=== PATIENT | female | born 1935 | race Hispanic/Latino ===

== ENCOUNTER 2017-12-17 16:00 | Inpatient (IN) | payer OTHER ==
[~2017-12-17] VITALS: Ht 144.8 cm; Wt 64.2 kg
[~2017-12-17 16:00] MED LIST: CITA-107 PO; LISI40TA4 PO; METF500T6 PO; METO50TA18 PO; PRAV20TA4 PO
[2017-12-17 16:52] LABS: EOSINOPHILS % (AUTO) 1.9 % (0.0-8.0); HEMATOCRIT 36.8 % (36-48); LYMPHOCYTES % (AUTO) 21.2 % (21.0-51.0); MEAN CORPUSCULAR HEMOGLOBIN 32.5 pg (27.0-33.0); MEAN CORPUSCULAR HGB CONC 33.8 g/dL (32.0-36.0); MEAN CORPUSCULAR VOLUME 96.1 fL (79-99); MONOCYTES % (AUTO) 7.3 % (3.0-13.0); NEUTROPHILS % (AUTO) 68.6 % (40.0-77.0); PLATELET COUNT (AUTO) 205 K/uL (130-400); RED BLOOD CELL COUNT(AUTO) 3.83 MIL/uL (4.00-5.50); RED CELL DISTRIBUTION WIDTH 14.6 % (11.0-15.5); WHITE BLOOD COUNT (AUTO) 8.2 K/uL (4.8-10.8)
[2017-12-17 16:54] LABS: APPEARANCE,URINE CLOUDY (CLEAR); BILIRUBIN,URINE NEGATIVE (NEGATIVE); COLOR,URINE YELLOW (YELLOW); GLUCOSE, URINE (UA) NEGATIVE (NEGATIVE); KETONES,URINE NEGATIVE (NEGATIVE); LEUKOCYTE ESTERASE ,URINE LARGE (NEGATIVE); NITRATE,URINE NEGATIVE (NEGATIVE); OCCULT BLOOD,URINE TRACE-INTACT (NEGATIVE); PH,URINE 6.5 (5.0-8.0); PROTEIN,URINE 30 (NEGATIVE); UROBILINOGEN,URINE 0.2 mg/dL (0.2-1.0)
[2017-12-17 16:55] VITALS: BP 168/88
[2017-12-17 17:02] LABS: POTASSIUM 4.2 mmol/L (3.5-5.1)
[2017-12-17] MEDS ORDERED: ASPI-1181 PO (17:02)
[2017-12-17 17:09] LABS: INR 0.96 (0.85-1.15); PARTIAL THROMBOPLASTIN TIME 25.7 SEC (26.3-35.5); PROTHROMBIN TIME 10.1 SEC (9.6-11.6)
[2017-12-17 17:48] LABS: BACTERIA,URINE Rare /HPF (None Seen); SQUAMOUS EPITHELIAL CELL,UR Rare /LPF (0-2); TRANSITIONAL EPI CELLS,URINE Rare /LPF (None Seen); WBC,URINE 51-100 /HPF (0-1)
[2017-12-20] VITALS (19 sets, daily range): BP systolic 118–192; BP diastolic 45–97
[2017-12-20] MEDS ORDERED: GENTAMICIN SULFATE 240 MG in SODIUM CHLORIDE 0.9% 100 ML IV SCH (09:30)
[2017-12-20] MEDS: CEFAZOLIN SODIUM 1 GM VIAL IVP SCH ×3 (10:00→21:05)
[2017-12-20] MEDS ORDERED: SODIUM CHLORIDE 0.9% 1000ML 1,000 ML IV ONE (10:32)
[2017-12-20] MEDS ORDERED: ACETAMINOPHEN EXTRA STRENGTH 500 MG TABLET ONE (10:58)
[2017-12-20] MEDS ORDERED: CELECOXIB 200 MG CAP ONE (10:58)
[2017-12-20] MEDS ORDERED: KETOROLAC TROMETHAMINE 15MG/ML ONE (10:58)
[2017-12-20] MEDS ORDERED: OXYCODONE HCL 10 MG TAB.SR.12H PO ONE (10:59)
[2017-12-20] MEDS ORDERED: CEFAZOLIN SODIUM 1 GM VIAL ONE (11:29)
[2017-12-20] MEDS ORDERED: TRANEXAMIC ACID 1000MG/10ML IV ONE ×2 (11:29→14:39)
[2017-12-20] MEDS ORDERED: ROCURONIUM BROMIDE 10MG/1ML 5ML VL ONE ×2 (11:35→15:04)
[2017-12-20] MEDS ORDERED: PROPOFOL 10 MG/ML 20ML VIAL IV ONE (11:35)
[2017-12-20] MEDS ORDERED: LIDOCAINE PF 2% 5ML ABBOJECT ONE (11:35)
[2017-12-20] MEDS ORDERED: ROPIVACAINE 0.5% 5MG/ML 30ML IJ ONE (11:43)
[2017-12-20] MEDS ORDERED: NEOSTIGMINE METHYLSULFATE 1MG/ML IV ONE (15:04)
[2017-12-20] MEDS ORDERED: GLYCOPYRROLATE 0.2 MG/ML 5 ML VIAL ONE (15:04)
[2017-12-20] MEDS ORDERED: DIPHENHYDRAMINE HCL 25 MG CAPSULE PO PRN (15:15)
[2017-12-20] MEDS ORDERED: POTASSIUM CHLORIDE 10% ELIXIR 20 MEQ/15 ML UDCUP PO PRN (15:15)
[2017-12-20] MEDS ORDERED: HYDROCODONE/ACETAMINOPHEN 5/325 MG TAB PO PRN ×2 (15:15)
[2017-12-20] MEDS ORDERED: PROMETHAZINE HCL 25 MG/ML 1ML AMPULE IM PRN (15:15)
[2017-12-20] MEDS ORDERED: DiphenhydrAMINE HCL 50 MG/ML VIAL IVP PRN (15:15)
[2017-12-20] MEDS ORDERED: TEMAZEPAM 15 MG CAPSULE PO PRN (15:15)
[2017-12-20] MEDS ORDERED: FE FUMARATE/FA/MV, MIN COMB#15 1 TAB PO PRN (15:15)
[2017-12-20] MEDS ORDERED: LIDOCAINE HCL-MPF 1% 2ML VIAL IVP PRN (15:15)
[2017-12-20] MEDS ORDERED: POTASSIUM CHLORIDE 20 MEQ ERTAB PO PRN (15:15)
[2017-12-20] MEDS ORDERED: KETOROLAC TROMETHAMINE 15MG/ML IV PRN (15:15)
[2017-12-20] MEDS ORDERED: POTASSIUM CHLORIDE 20MEQ/100ML 100 ML IV PRN (15:15)
[2017-12-20] MEDS ORDERED: TRAMADOL HCL 50 MG TABLET PO PRN (15:15)
[2017-12-20] MEDS ORDERED: CALCIUM CARBONATE 500 MG TABLET PO PRN (15:15)
[2017-12-20] MEDS ORDERED: MEPERIDINE-PF 25 MG/ML SYG ONE (15:50)
[2017-12-20] MEDS ORDERED: HYDRALAZINE HCL 20 MG/ML VIAL ONE (15:51)
[2017-12-20] MEDS: INSULIN HUMULIN R 100 UNIT/ML 3ML SQ SCH ×2 (16:30→21:00)
[2017-12-20] MEDS: SODIUM CHLORIDE 0.9% 1000ML 1,000 ML IV SCH (16:52)
[2017-12-20] MEDS: METFORMIN HCL 500 MG TABLET PO SCH (19:28)
[2017-12-20] MEDS ORDERED: CEFAZOLIN 2GM / 50 ML 50 ML IV SCH (20:15)
[2017-12-20] MEDS ORDERED: ASPIRIN 81 MG EC TAB PO SCH (21:00)
[2017-12-20] MEDS: METOPROLOL TARTRATE 50 MG TAB PO SCH (21:00)
[2017-12-20] MEDS ORDERED: CITALOPRAM 20 MG TABLET PO SCH (21:00)
[2017-12-20] MEDS: CELECOXIB 200 MG CAP PO SCH (21:04)
[2017-12-21] MEDS: SODIUM CHLORIDE 0.9% 1000ML 1,000 ML IV SCH ×2 (01:26→11:09)
[2017-12-21] MEDS: CEFAZOLIN SODIUM 1 GM VIAL IVP SCH (03:39)
[2017-12-21 04:45] VITALS: BP 162/77
[2017-12-21 05:37] LABS: HEMATOCRIT 31.8 % (36-48); MEAN CORPUSCULAR HGB CONC 34.2 g/dL (32.0-36.0); MEAN CORPUSCULAR VOLUME 96.5 fL (79-99); PLATELET COUNT (AUTO) 176 K/uL (130-400); RED BLOOD CELL COUNT(AUTO) 3.29 MIL/uL (4.00-5.50); RED CELL DISTRIBUTION WIDTH 14.5 % (11.0-15.5); WHITE BLOOD COUNT (AUTO) 9.3 K/uL (4.8-10.8)
[2017-12-21] MEDS: INSULIN HUMULIN R 100 UNIT/ML 3ML SQ SCH ×3 (05:42→16:30)
[2017-12-21 05:44] LABS: CREATININE 0.9 mg/dL (0.5-1.5); POTASSIUM 4.1 mmol/L (3.5-5.1)
[2017-12-21 08:29] VITALS: BP 162/78
[2017-12-21] MEDS ORDERED: FAMOTIDINE 20MG TAB 20 MG TAB PO SCH (09:00)
[2017-12-21] MEDS ORDERED: ENOXAPARIN SODIUM 40 MG/0.4 ML SYRINGE SQ SCH (09:00)
[2017-12-21] MEDS ORDERED: ATORVASTATIN CALCIUM 10 MG TABLET PO SCH (09:00)
[2017-12-21] MEDS ORDERED: LISINOPRIL 40 MG TABLET PO SCH (09:00)
[2017-12-21] MEDS ORDERED: POLYETHYLENE GLYCOL 3350 17 GM POWD.PACK PO SCH (09:00)
[2017-12-21] MEDS: CELECOXIB 200 MG CAP PO SCH (09:03)
[2017-12-21] MEDS: METFORMIN HCL 500 MG TABLET PO SCH ×2 (09:04→16:53)
[2017-12-21] MEDS: METOPROLOL TARTRATE 50 MG TAB PO SCH (09:04)
[2017-12-21 11:29] VITALS: BP 140/89
[2017-12-21] MEDS ORDERED: PSYLLIUM SEED 1 EACH PACKET PO SCH (12:00)
[2017-12-21 16:30] VITALS: BP 177/80
[2017-12-21] MEDS ORDERED: HYDR-2132 PO (19:01)
[2017-12-22] MEDS ORDERED: BISACODYL 5 MG TABLET.DR PO PRN (15:15)
[2017-12-23] MEDS ORDERED: BISACODYL 10 MG SUPP.RECT RC PRN (15:15)
== END 2017-12-21 21:21 | disposition home health service (06) | DRG 483 ==
LOC: EDSTATUS 16:00 → DAHIP 12-20 09:11 → 4AH 12-20 16:39
PROVIDERS: ADMIT Orthopaedic Surgery; ATTEND Orthopaedic Surgery
PROC: 0RRJ0JZ Replacement of Right Shoulder Joint with Synthetic Substitute, Open Approach (ICD-10-PCS; principal; 2017-12-20 12:39)
DX: M19.011 Primary osteoarthritis, right shoulder (principal); E11.9 Type 2 diabetes mellitus without complications; F32.9 Major depressive disorder, single episode, unspecified; F41.9 Anxiety disorder, unspecified; I10 Essential (primary) hypertension; E78.5 Hyperlipidemia, unspecified; G89.29 Other chronic pain
CPT/HCPCS: 36415; 76000; 80048; 81001; 82948; 85025; 85027; 85610; 85730; 88309; 88311; 96374; A4218; A4565; C1713; C1776; J0360; J0690; J1580; J1650; J1885; J2001; J2175; J2704; J2710; J2795; J3490; J7030

== ENCOUNTER → 2020-01-24 | Outpatient (CLI) | payer OTHER ==
[~2020-01-24] MED LIST changes: +ASPI-1443 PO; +HYDR-2132 PO; +METF-444 PO; -METF500T6 PO
== END | disposition home or self-care (01) ==
LOC: SHCH 08:47
PROVIDERS: ATTEND Internal Medicine Cardiovascular Disease
DX: I11.9 Hypertensive heart disease without heart failure (principal)
CPT/HCPCS: 93306; 93356

== ENCOUNTER → 2021-04-30 | Outpatient (CLI) | payer OTHER ==
[~2021-04-30] MED LIST changes: +ACET-3194 PO; +ALEN70TA80 PO; +BISA10SU11 RC; +CLOT15C TP; +DIPH25TA51 PO; +DOCU100T PO; +FAMO20TA8 PO; +HYDR28.32 TP; +IODINE TP; +LEVO25CA4 PO; +LISI20TA24 PO; -LISI40TA4 PO; +LISI40TA9 PO; +LORATADINE PO; +NA P133E22 RC
== END | disposition home or self-care (01) ==
LOC: WHH 13:45
PROVIDERS: ATTEND Specialist
DX: T87.81 Dehiscence of amputation stump (principal); E11.52 Type 2 diabetes mellitus with diabetic peripheral angiopathy with gangrene; I96 Gangrene, not elsewhere classified; E11.69 Type 2 diabetes mellitus with other specified complication; M86.671 Other chronic osteomyelitis, right ankle and foot; M81.0 Age-related osteoporosis without current pathological fracture; I10 Essential (primary) hypertension; K21.9 Gastro-esophageal reflux disease without esophagitis; E78.5 Hyperlipidemia, unspecified; E03.9 Hypothyroidism, unspecified; J44.9 Chronic obstructive pulmonary disease, unspecified; R26.9 Unspecified abnormalities of gait and mobility; I25.10 Atherosclerotic heart disease of native coronary artery without angina pectoris; Z96.659 Presence of unspecified artificial knee joint; Z89.511 Acquired absence of right leg below knee; Z88.5 Allergy status to narcotic agent; Y83.5 Amputation of limb(s) as the cause of abnormal reaction of the patient, or of later complication, without mention of misadventure at the time of the procedure; Y92.238 Other place in hospital as the place of occurrence of the external cause
CPT/HCPCS: G0463

== ENCOUNTER → 2021-05-14 | Outpatient (CLI) | payer OTHER | END | disposition home or self-care (01) | LOC: WHH 13:04 | PROVIDERS: ATTEND Specialist | DX: T87.81 Dehiscence of amputation stump (principal); E11.52 Type 2 diabetes mellitus with diabetic peripheral angiopathy with gangrene; I96 Gangrene, not elsewhere classified; E11.69 Type 2 diabetes mellitus with other specified complication; M86.671 Other chronic osteomyelitis, right ankle and foot; M81.0 Age-related osteoporosis without current pathological fracture; I10 Essential (primary) hypertension; K21.9 Gastro-esophageal reflux disease without esophagitis; E78.5 Hyperlipidemia, unspecified; E03.9 Hypothyroidism, unspecified; J44.9 Chronic obstructive pulmonary disease, unspecified; R26.9 Unspecified abnormalities of gait and mobility; I25.10 Atherosclerotic heart disease of native coronary artery without angina pectoris; Z96.659 Presence of unspecified artificial knee joint; Z89.511 Acquired absence of right leg below knee; Z88.5 Allergy status to narcotic agent; Y83.5 Amputation of limb(s) as the cause of abnormal reaction of the patient, or of later complication, without mention of misadventure at the time of the procedure | CPT/HCPCS: G0463 ==

== ENCOUNTER → 2021-05-23 | Outpatient (CLI) | payer OTHER | END | disposition home or self-care (01) | LOC: RAH 09:28 | PROVIDERS: ATTEND Internal Medicine Gastroenterology | DX: K22.8 Other specified diseases of esophagus (principal); K22.4 Dyskinesia of esophagus; K44.9 Diaphragmatic hernia without obstruction or gangrene | CPT/HCPCS: 74240 ==

== ENCOUNTER → 2022-09-29 | Outpatient (CLI) | payer OTHER | END | disposition home or self-care (01) | LOC: RAH 08:15 | PROVIDERS: ATTEND Internal Medicine Gastroenterology | DX: R93.3 Abnormal findings on diagnostic imaging of other parts of digestive tract (principal); R68.81 Early satiety; R11.0 Nausea | CPT/HCPCS: 74240 ==

== ENCOUNTER → 2022-11-20 | Outpatient (CLI) | payer OTHER ==
[~2022-11-20] MED LIST changes: +AMLO-258 PO; -CLOT15C TP; -HYDR-2132 PO; -HYDR28.32 TP; -IODINE TP; -LISI40TA9 PO; +MIRA50TA PO; -NA P133E22 RC; +UMEC1DIS IH
== END | disposition home or self-care (01) ==
LOC: RAH 09:59
PROVIDERS: ATTEND Internal Medicine Gastroenterology
DX: K44.9 Diaphragmatic hernia without obstruction or gangrene (principal); M47.815 Spondylosis without myelopathy or radiculopathy, thoracolumbar region
CPT/HCPCS: 74176

== ENCOUNTER 2022-11-30 11:50 | Inpatient (IN) | payer OTHER ==
[~2022-11-30] VITALS: Ht 149.9 cm; Wt 41.7 kg
[2022-11-30 13:50] LABS: BASOPHILS % (AUTO) 0.6 % (0.0-5.0); EOSINOPHILS % (AUTO) 1.6 % (0.0-8.0); HEMATOCRIT 28.7 % (36-48); MEAN CORPUSCULAR HEMOGLOBIN 32.1 pg (27.0-33.0); MEAN CORPUSCULAR HGB CONC 31.4 g/dL (32.0-36.0); MEAN CORPUSCULAR VOLUME 102.5 fL (79-99); MONOCYTES % (AUTO) 7.8 % (3.0-13.0); NEUTROPHILS % (AUTO) 59.5 % (40.0-77.0); PLATELET COUNT (AUTO) 214 K/uL (130-400); RED CELL DISTRIBUTION WIDTH 18.5 % (11.0-15.5); WHITE BLOOD COUNT (AUTO) 9.4 K/uL (4.8-10.8)
[2022-11-30 14:12] LABS: APPEARANCE,URINE CLOUDY (CLEAR); BILIRUBIN,URINE NEGATIVE (NEGATIVE); COLOR,URINE YELLOW (YELLOW); GLUCOSE, URINE (UA) NEGATIVE (NEGATIVE); KETONES,URINE NEGATIVE (NEGATIVE); LEUKOCYTE ESTERASE ,URINE LARGE Leu/uL (NEGATIVE); NITRATE,URINE POSITIVE (NEGATIVE); OCCULT BLOOD,URINE LARGE (NEGATIVE); PROTEIN,URINE 100 mg/dL (NEGATIVE); UROBILINOGEN,URINE 0.2 mg/dL (0.2-1.0)
[2022-11-30 14:24] LABS: BACTERIA,URINE FEW /HPF (None Seen); MUCUS,URINE RARE LPF (None Seen); SQUAMOUS EPITHELIAL CELL,UR MANY /HPF (0-2); WBC,URINE >100 /HPF (0-1)
[2022-11-30 14:29] LABS: CREATININE 1.2 mg/dL (0.5-1.5); POTASSIUM 4.3 mmol/L (3.5-5.1)
[2022-11-30 14:38] LABS: ALBUMIN 2.2 g/dL (3.5-5.0); TOTAL PROTEIN, SERUM 6.3 g/dL (6.0-8.3)
[2022-11-30] MEDS ORDERED: LACTULOSE 20 GM/30 ML UDCUP PO PRN (16:00)
[2022-11-30] MEDS ORDERED: ACETAMINOPHEN 325 MG TAB PO PRN (16:00)
[2022-11-30] MEDS ORDERED: ONDANSETRON 4MG INJ IVP PRN (16:00)
[2022-11-30] MEDS ORDERED: LABETALOL 20MG SYG IV PRN (16:00)
[2022-11-30] MEDS ORDERED: HYDRALAZINE 20MG/ML VIAL IV PRN (16:00)
[2022-11-30] MEDS: INSULIN HUMULIN R 100 UNIT/ML 3ML SQ SCH ×2 (16:30→20:16)
[2022-11-30 18:37] VITALS: BP 119/73
[2022-11-30 20:00] VITALS: BP 117/56
[2022-11-30] MEDS: LACTATED RINGERS 1000ML 1,000 ML IV SCH (20:52)
[2022-12-01] VITALS (7 sets, daily range): BP systolic 119–149; BP diastolic 59–88
[2022-12-01 06:09] LABS: CREATININE 1.1 mg/dL (0.5-1.5); MAGNESIUM 2.3 mg/dL (1.80-2.40); PHOSPHORUS 3.8 mg/dL (2.5-4.9); POTASSIUM 3.7 mmol/L (3.5-5.1)
[2022-12-01] MEDS: INSULIN HUMULIN R 100 UNIT/ML 3ML SQ SCH ×4 (06:32→21:00)
[2022-12-01] MEDS: LACTATED RINGERS 1000ML 1,000 ML IV SCH (09:20)
[2022-12-01] MEDS ORDERED: DIATR MEGLU/DIATRIZOATE SODIUM 30 ML BOTTLE ONE (12:38)
[2022-12-01] MEDS: DEXTROSE 5%-LACTATED RINGERS 1,000 ML IV SCH (17:41)
[2022-12-01] MEDS ORDERED: LEVOFLOXACIN 500 MG/D5W 100 ML 100 ML IV ONE (20:30)
[2022-12-02 04:00] VITALS: BP 126/64
[2022-12-02] MEDS: DEXTROSE 5%-LACTATED RINGERS 1,000 ML IV SCH (05:15)
[2022-12-02 05:34] LABS: BASOPHILS % (AUTO) 0.5 % (0.0-5.0); EOSINOPHILS % (AUTO) 1.6 % (0.0-8.0); LYMPHOCYTES % (AUTO) 23.3 % (21.0-51.0); MEAN CORPUSCULAR HEMOGLOBIN 32.1 pg (27.0-33.0); MEAN CORPUSCULAR VOLUME 107.1 fL (79-99); MONOCYTES % (AUTO) 8.7 % (3.0-13.0); NEUTROPHILS % (AUTO) 65.4 % (40.0-77.0); PLATELET COUNT (AUTO) 188 K/uL (130-400); RED CELL DISTRIBUTION WIDTH 18.3 % (11.0-15.5); WHITE BLOOD COUNT (AUTO) 7.7 K/uL (4.8-10.8)
[2022-12-02 05:48] LABS: CREATININE 0.9 mg/dL (0.5-1.5); MAGNESIUM 1.8 mg/dL (1.80-2.40); POTASSIUM 3.2 mmol/L (3.5-5.1)
[2022-12-02] MEDS: POTASSIUM CHLORIDE 10MEQ/100ML 10 MEQ/100 ML ML IV SCH (06:30)
[2022-12-02] MEDS: INSULIN HUMULIN R 100 UNIT/ML 3ML SQ SCH ×7 (07:30→21:00)
[2022-12-02 07:35] VITALS: BP 137/64
[2022-12-02] MEDS: MAGNESIUM 2GM PREMIX 50ML 50 ML IV SCH (07:46)
[2022-12-02] MEDS ORDERED: MAGNESIUM 2GM PREMIX 50ML 50 ML IV PRN (10:00)
[2022-12-02 11:35] VITALS: BP 137/65
[2022-12-02] MEDS: POTASSIUM CHLORIDE 20MEQ/100ML 100 ML IV PRN (12:40)
[2022-12-02] MEDS: DEXTROSE 5%-WATER 1,000 ML IV SCH ×2 (12:41→18:47)
[2022-12-02 15:30] VITALS: BP 142/76
[2022-12-02 19:00] VITALS: BP 143/71
[2022-12-02] MEDS ORDERED: LEVOFLOXACIN 250 MG/D5W 50ML 50 ML IVPB SCH (20:30)
[2022-12-03] VITALS: BP 128/75
[2022-12-03] MEDS: DEXTROSE 5%-WATER 1,000 ML IV SCH ×3 (02:53→18:44)
[2022-12-03 04:00] VITALS: BP 121/63
[2022-12-03 05:25] LABS: BASOPHILS % (AUTO) 0.3 % (0.0-5.0); EOSINOPHILS % (AUTO) 2.1 % (0.0-8.0); HEMATOCRIT 27.6 % (36-48); LYMPHOCYTES % (AUTO) 23.7 % (21.0-51.0); MEAN CORPUSCULAR HEMOGLOBIN 31.6 pg (27.0-33.0); MEAN CORPUSCULAR HGB CONC 30.4 g/dL (32.0-36.0); MEAN CORPUSCULAR VOLUME 103.8 fL (79-99); MONOCYTES % (AUTO) 8.8 % (3.0-13.0); NEUTROPHILS % (AUTO) 64.3 % (40.0-77.0); PLATELET COUNT (AUTO) 189 K/uL (130-400); RED BLOOD CELL COUNT(AUTO) 2.66 MIL/uL (4.00-5.50); RED CELL DISTRIBUTION WIDTH 18.1 % (11.0-15.5); WHITE BLOOD COUNT (AUTO) 7.9 K/uL (4.8-10.8)
[2022-12-03 05:37] LABS: CREATININE 0.8 mg/dL (0.5-1.5); POTASSIUM 3.1 mmol/L (3.5-5.1)
[2022-12-03] MEDS: POTASSIUM CHLORIDE 20MEQ/100ML 100 ML IV PRN ×2 (06:23→08:56)
[2022-12-03] MEDS: LIDOCAINE HCL-MPF 1% 2ML VIAL IV PRN (06:23)
[2022-12-03] MEDS: INSULIN HUMULIN R 100 UNIT/ML 3ML SQ SCH ×5 (06:24→21:00)
[2022-12-03] MEDS: POTASSIUM CHLORIDE 10MEQ/100ML 10 MEQ/100 ML ML IV SCH (06:30)
[2022-12-03 07:35] VITALS: BP 146/68
[2022-12-03] MEDS: MEROPENEM 1 GM VIAL IVP SCH ×2 (10:00→18:43)
[2022-12-03 11:35] VITALS: BP 129/82
[2022-12-03 15:35] VITALS: BP 121/65
[2022-12-03 20:04] VITALS: BP 154/90
[2022-12-03] MEDS: BALSAM PERU/CASTOR OIL 60 GM TUBE TP SCH (21:21)
[2022-12-04] VITALS (23 sets, daily range): BP systolic 110–168; BP diastolic 51–86
[2022-12-04] MEDS: DEXTROSE 5%-WATER 1,000 ML IV SCH ×3 (00:45→22:29)
[2022-12-04] MEDS: MEROPENEM 1 GM VIAL IVP SCH ×3 (02:27→18:00)
[2022-12-04 05:32] LABS: BASOPHILS % (AUTO) 0.2 % (0.0-5.0); EOSINOPHILS % (AUTO) 3.1 % (0.0-8.0); HEMATOCRIT 26.7 % (36-48); LYMPHOCYTES % (AUTO) 20.2 % (21.0-51.0); MEAN CORPUSCULAR HEMOGLOBIN 31.7 pg (27.0-33.0); MEAN CORPUSCULAR HGB CONC 31.1 g/dL (32.0-36.0); MEAN CORPUSCULAR VOLUME 101.9 fL (79-99); MONOCYTES % (AUTO) 7.8 % (3.0-13.0); NEUTROPHILS % (AUTO) 67.9 % (40.0-77.0); PLATELET COUNT (AUTO) 174 K/uL (130-400); RED BLOOD CELL COUNT(AUTO) 2.62 MIL/uL (4.00-5.50); RED CELL DISTRIBUTION WIDTH 17.4 % (11.0-15.5); WHITE BLOOD COUNT (AUTO) 8.3 K/uL (4.8-10.8)
[2022-12-04 05:41] LABS: CREATININE 0.8 mg/dL (0.5-1.5); POTASSIUM 3.2 mmol/L (3.5-5.1)
[2022-12-04] MEDS: POTASSIUM CHLORIDE 10MEQ/100ML 10 MEQ/100 ML ML IV SCH (06:30)
[2022-12-04] MEDS: POTASSIUM CHLORIDE 20MEQ/100ML 100 ML IV PRN ×2 (06:39→09:37)
[2022-12-04] MEDS: LIDOCAINE HCL-MPF 1% 2ML VIAL IV PRN ×2 (06:39→09:39)
[2022-12-04] MEDS: INSULIN HUMULIN R 100 UNIT/ML 3ML SQ SCH ×4 (06:40→21:00)
[2022-12-04] MEDS: BALSAM PERU/CASTOR OIL 60 GM TUBE TP SCH ×2 (09:39→22:28)
[2022-12-04] MEDS ORDERED: BUPIVACAINE/PF 0.5% 30ML VIAL ONE (12:56)
[2022-12-04] MEDS ORDERED: VASOPRESSIN 20 UNITS/ML 1ML VIAL ONE (13:13)
[2022-12-04] MEDS ORDERED: ALBUMIN (HUMAN) 5% 500 ML IV ONE (13:13)
[2022-12-04] MEDS ORDERED: ROCURONIUM 10MG/1ML SYR 10 MG/ML ML ONE (15:08)
[2022-12-04] MEDS ORDERED: PROPOFOL 10 MG/ML 20ML VIAL IV ONE (15:08)
[2022-12-04] MEDS ORDERED: LIDOCAINE PF 100MG/5ML (2%) SYRINGE 5ML ONE (15:08)
[2022-12-04] MEDS ORDERED: FENTANYL CITRATE PF 50 MCG/1 ML 20ML VIAL IJ ONE (15:08)
[2022-12-04] MEDS ORDERED: FENTANYL CITRATE PF 50 MCG/1 ML 2ML VIAL ONE (15:09)
[2022-12-04] MEDS ORDERED: ONDANSETRON 4MG INJ ONE (17:11)
[2022-12-04] MEDS ORDERED: DEXAMETHASONE SOD PHOSPHATE 10MG/ML 1ML VIAL ONE (17:11)
[2022-12-04] MEDS ORDERED: SUGAMMADEX SODIUM 200 MG/2 ML VIAL IV ONE (17:41)
[2022-12-04] MEDS ORDERED: MEPERIDINE-PF 25 MG/ML SYG ONE (18:29)
[2022-12-05] MEDS: POTASSIUM CHLORIDE 10MEQ/100ML 10 MEQ/100 ML ML IV SCH ×2 (01:56→20:07)
[2022-12-05] MEDS: MEROPENEM 1 GM VIAL IVP SCH ×3 (01:56→17:47)
[2022-12-05 07:13] LABS: CREATININE 0.9 mg/dL (0.5-1.5); MAGNESIUM 1.8 mg/dL (1.80-2.40); POTASSIUM 4.3 mmol/L (3.5-5.1)
[2022-12-05 07:30] VITALS: BP 118/89
[2022-12-05] MEDS: INSULIN HUMULIN R 100 UNIT/ML 3ML SQ SCH ×4 (07:30→21:00)
[2022-12-05 08:01] LABS: BASOPHILS % (AUTO) 0.5 % (0.0-5.0); EOSINOPHILS % (AUTO) 0.3 % (0.0-8.0); HEMATOCRIT 40.6 % (36-48); LYMPHOCYTES % (AUTO) 5.8 % (21.0-51.0); MEAN CORPUSCULAR HEMOGLOBIN 32.2 pg (27.0-33.0); MEAN CORPUSCULAR HGB CONC 33.3 g/dL (32.0-36.0); MEAN CORPUSCULAR VOLUME 96.9 fL (79-99); MONOCYTES % (AUTO) 2.9 % (3.0-13.0); NEUTROPHILS % (AUTO) 89.7 % (40.0-77.0); PLATELET COUNT (AUTO) 163 K/uL (130-400); RED BLOOD CELL COUNT(AUTO) 4.19 MIL/uL (4.00-5.50); RED CELL DISTRIBUTION WIDTH 19.2 % (11.0-15.5); WHITE BLOOD COUNT (AUTO) 18.8 K/uL (4.8-10.8)
[2022-12-05] MEDS: BALSAM PERU/CASTOR OIL 60 GM TUBE TP SCH ×2 (09:54→21:11)
[2022-12-05 11:00] VITALS: BP 162/86
[2022-12-05] MEDS: DEXTROSE 5%-WATER 1,000 ML IV SCH ×2 (11:40→21:12)
[2022-12-05] MEDS: FLUCONAZOLE 400 MG/NS 200 ML 200 ML IV SCH (14:30)
[2022-12-05] MEDS: MAGNESIUM 2GM PREMIX 50ML 50 ML IV SCH (14:31)
[2022-12-05 16:00] VITALS: BP 139/76
[2022-12-05 20:00] VITALS: BP 141/64
[2022-12-06] VITALS: BP 114/67
[2022-12-06] MEDS: MEROPENEM 1 GM VIAL IVP SCH ×3 (01:42→17:41)
[2022-12-06 04:00] VITALS: BP 158/65
[2022-12-06 06:16] LABS: BASOPHILS % (AUTO) 0.2 % (0.0-5.0); EOSINOPHILS % (AUTO) 0.5 % (0.0-8.0); HEMATOCRIT 33.6 % (36-48); LYMPHOCYTES % (AUTO) 8.5 % (21.0-51.0); MEAN CORPUSCULAR HEMOGLOBIN 31.5 pg (27.0-33.0); MEAN CORPUSCULAR HGB CONC 32.4 g/dL (32.0-36.0); MEAN CORPUSCULAR VOLUME 97.1 fL (79-99); MONOCYTES % (AUTO) 3.9 % (3.0-13.0); NEUTROPHILS % (AUTO) 85.9 % (40.0-77.0); PLATELET COUNT (AUTO) 162 K/uL (130-400); RED BLOOD CELL COUNT(AUTO) 3.46 MIL/uL (4.00-5.50); RED CELL DISTRIBUTION WIDTH 18.5 % (11.0-15.5); WHITE BLOOD COUNT (AUTO) 16.3 K/uL (4.8-10.8)
[2022-12-06] MEDS: INSULIN HUMULIN R 100 UNIT/ML 3ML SQ SCH ×4 (06:24→21:00)
[2022-12-06 06:29] LABS: CREATININE 0.8 mg/dL (0.5-1.5)
[2022-12-06 07:30] VITALS: BP 140/96
[2022-12-06] MEDS: FAMOTIDINE 20MG TAB PO SCH ×2 (09:38→21:26)
[2022-12-06] MEDS: ENOXAPARIN SODIUM 30 MG/0.3 ML SQ SCH (09:39)
[2022-12-06] MEDS: BALSAM PERU/CASTOR OIL 60 GM TUBE TP SCH ×2 (09:40→21:26)
[2022-12-06 10:55] VITALS: BP 141/69
[2022-12-06] MEDS ORDERED: LACTULOSE 20 GM/30 ML UDCUP PO SCH (11:30)
[2022-12-06] MEDS: FLUCONAZOLE 400 MG/NS 200 ML 200 ML IV SCH (13:56)
[2022-12-06] MEDS: POLYETHYLENE GLYCOL 3350 17 GM POWD.PACK PO SCH (13:56)
[2022-12-06] MEDS: DEXTROSE 5%-WATER 1,000 ML IV SCH (14:24)
[2022-12-06 16:20] VITALS: BP 122/86
[2022-12-06 20:00] VITALS: BP 135/76
[2022-12-07] VITALS: BP 154/55
[2022-12-07] MEDS: MEROPENEM 1 GM VIAL IVP SCH ×3 (02:04→20:24)
[2022-12-07] MEDS: DEXTROSE 5%-WATER 1,000 ML IV SCH ×3 (02:05→21:22)
[2022-12-07 04:00] VITALS: BP 125/69
[2022-12-07 05:08] LABS: BASOPHILS % (AUTO) 0.1 % (0.0-5.0); EOSINOPHILS % (AUTO) 1.1 % (0.0-8.0); HEMATOCRIT 30.8 % (36-48); LYMPHOCYTES % (AUTO) 6.5 % (21.0-51.0); MEAN CORPUSCULAR HEMOGLOBIN 31.9 pg (27.0-33.0); MEAN CORPUSCULAR HGB CONC 33.4 g/dL (32.0-36.0); MEAN CORPUSCULAR VOLUME 95.4 fL (79-99); MONOCYTES % (AUTO) 2.5 % (3.0-13.0); PLATELET COUNT (AUTO) 149 K/uL (130-400); RED BLOOD CELL COUNT(AUTO) 3.23 MIL/uL (4.00-5.50); RED CELL DISTRIBUTION WIDTH 17.9 % (11.0-15.5); WHITE BLOOD COUNT (AUTO) 14.1 K/uL (4.8-10.8)
[2022-12-07 05:20] LABS: CREATININE 0.8 mg/dL (0.5-1.5)
[2022-12-07 05:23] LABS: POTASSIUM 2.8 mmol/L (3.5-5.1)
[2022-12-07] MEDS: POTASSIUM CHLORIDE 10MEQ/100ML 10 MEQ/100 ML ML IV SCH ×2 (06:30→23:10)
[2022-12-07] MEDS: INSULIN HUMULIN R 100 UNIT/ML 3ML SQ SCH ×4 (06:31→20:26)
[2022-12-07 07:25] VITALS: BP 127/75
[2022-12-07] MEDS ORDERED: KCL 20 MEQ ERTAB PO PRN (08:30)
[2022-12-07] MEDS ORDERED: LIDOCAINE HCL-MPF 1% 2ML VIAL IV PRN (08:30)
[2022-12-07] MEDS ORDERED: POTASSIUM CHLORIDE 20MEQ/100ML 100 ML IV PRN (08:30)
[2022-12-07] MEDS: FAMOTIDINE 20MG TAB PO SCH ×2 (08:37→20:25)
[2022-12-07] MEDS: POLYETHYLENE GLYCOL 3350 17 GM POWD.PACK PO SCH (08:37)
[2022-12-07] MEDS: POTASSIUM CHLORIDE 20MEQ/100ML 100 ML IV PRN (08:38)
[2022-12-07] MEDS: ENOXAPARIN SODIUM 30 MG/0.3 ML SQ SCH (08:38)
[2022-12-07] MEDS: BALSAM PERU/CASTOR OIL 60 GM TUBE TP SCH ×2 (08:40→20:40)
[2022-12-07 11:00] VITALS: BP 134/80
[2022-12-07 11:52] LABS: INR 0.99 (0.85-1.15); PROTHROMBIN TIME 10.8 SEC (9.6-11.6)
[2022-12-07 11:53] LABS: PARTIAL THROMBOPLASTIN TIME 54.5 SEC (26.3-35.5)
[2022-12-07] MEDS ORDERED: METOCLOPRAMIDE 10 MG/2 ML VIAL IVP ONE (13:30)
[2022-12-07] MEDS: FUROSEMIDE 20 MG TABLET PO SCH (13:31)
[2022-12-07 16:10] VITALS: BP 136/78
[2022-12-07] MEDS: POTASSIUM CHLORIDE 10% ELIXIR 20 MEQ/15 ML UDCUP PO PRN ×2 (16:22→20:25)
[2022-12-07] MEDS: FLUCONAZOLE 400 MG/NS 200 ML 200 ML IV SCH (20:23)
[2022-12-07 20:25] VITALS: BP 123/78
[2022-12-07] MEDS: METOCLOPRAMIDE 10 MG/2 ML VIAL IVP SCH (20:25)
[2022-12-08] VITALS (7 sets, daily range): BP systolic 109–160; BP diastolic 61–96
[2022-12-08] MEDS: METOCLOPRAMIDE 10 MG/2 ML VIAL IVP SCH ×4 (02:33→21:08)
[2022-12-08] MEDS: DEXTROSE 5%-WATER 1,000 ML IV SCH ×2 (02:35→22:09)
[2022-12-08] MEDS: MEROPENEM 1 GM VIAL IVP SCH ×3 (04:32→17:19)
[2022-12-08 05:24] LABS: HEMATOCRIT 32.3 % (36-48); MEAN CORPUSCULAR HEMOGLOBIN 32.2 pg (27.0-33.0); MEAN CORPUSCULAR HGB CONC 33.4 g/dL (32.0-36.0); MEAN CORPUSCULAR VOLUME 96.4 fL (79-99); RED BLOOD CELL COUNT(AUTO) 3.35 MIL/uL (4.00-5.50); RED CELL DISTRIBUTION WIDTH 17.6 % (11.0-15.5); WHITE BLOOD COUNT (AUTO) 9.5 K/uL (4.8-10.8)
[2022-12-08 05:34] LABS: CREATININE 0.8 mg/dL (0.5-1.5); MAGNESIUM 1.8 mg/dL (1.80-2.40); POTASSIUM 4.2 mmol/L (3.5-5.1)
[2022-12-08] MEDS: MAGNESIUM 2GM PREMIX 50ML 50 ML IV SCH (05:40)
[2022-12-08] MEDS: INSULIN HUMULIN R 100 UNIT/ML 3ML SQ SCH ×4 (06:05→21:00)
[2022-12-08] MEDS: ENOXAPARIN SODIUM 30 MG/0.3 ML SQ SCH (09:05)
[2022-12-08] MEDS: FAMOTIDINE 20MG TAB PO SCH ×2 (09:05→21:08)
[2022-12-08] MEDS: FUROSEMIDE 20 MG TABLET PO SCH (09:05)
[2022-12-08] MEDS: POLYETHYLENE GLYCOL 3350 17 GM POWD.PACK PO SCH (09:05)
[2022-12-08] MEDS: BALSAM PERU/CASTOR OIL 60 GM TUBE TP SCH ×2 (09:11→21:08)
[2022-12-08] MEDS: FLUCONAZOLE 400 MG/NS 200 ML 200 ML IV SCH (14:18)
[2022-12-08] MEDS: METOPROLOL TARTRATE 50 MG TAB PO SCH (17:19)
[2022-12-08] MEDS ORDERED: ASPIRIN 81 MG EC TAB PO SCH (21:00)
[2022-12-09] VITALS (7 sets, daily range): BP systolic 90–127; BP diastolic 37–68
[2022-12-09] MEDS: MEROPENEM 1 GM VIAL IVP SCH ×3 (02:26→18:10)
[2022-12-09 03:21] LABS: CREATININE 0.8 mg/dL (0.5-1.5); MAGNESIUM 2.4 mg/dL (1.80-2.40); POTASSIUM 3.7 mmol/L (3.5-5.1)
[2022-12-09 03:40] LABS: HEMATOCRIT 27.4 % (36-48); MEAN CORPUSCULAR HEMOGLOBIN 32.2 pg (27.0-33.0); MEAN CORPUSCULAR HGB CONC 33.2 g/dL (32.0-36.0); MEAN CORPUSCULAR VOLUME 96.8 fL (79-99); RED BLOOD CELL COUNT(AUTO) 2.83 MIL/uL (4.00-5.50); RED CELL DISTRIBUTION WIDTH 17.7 % (11.0-15.5); WHITE BLOOD COUNT (AUTO) 7.8 K/uL (4.8-10.8)
[2022-12-09] MEDS: INSULIN HUMULIN R 100 UNIT/ML 3ML SQ SCH ×4 (05:42→20:11)
[2022-12-09] MEDS: POTASSIUM CHLORIDE 10MEQ/100ML 10 MEQ/100 ML ML IV SCH (05:43)
[2022-12-09] MEDS: METOCLOPRAMIDE 10 MG/2 ML VIAL IVP SCH ×4 (06:03→18:10)
[2022-12-09] MEDS: LEVOTHYROXINE 25 MCG TABLET PO SCH (06:03)
[2022-12-09] MEDS: FUROSEMIDE 20 MG TABLET PO SCH (08:56)
[2022-12-09] MEDS: CITALOPRAM 20 MG TABLET PO SCH (08:56)
[2022-12-09] MEDS: METOPROLOL TARTRATE 50 MG TAB PO SCH ×2 (08:56→18:24)
[2022-12-09] MEDS: FAMOTIDINE 20MG TAB PO SCH ×2 (08:56→19:54)
[2022-12-09] MEDS: POLYETHYLENE GLYCOL 3350 17 GM POWD.PACK PO SCH (08:56)
[2022-12-09] MEDS: BALSAM PERU/CASTOR OIL 60 GM TUBE TP SCH ×2 (08:58→19:54)
[2022-12-09] MEDS: ENOXAPARIN SODIUM 30 MG/0.3 ML SQ SCH (08:58)
[2022-12-09] MEDS: ***HM*** (Umeclidinium Brm/Vilanterol Tr (Anoro Ellipta 62.5-25 Mcg IH SCH (09:00)
[2022-12-09] MEDS: MIRABEGRON 50 MG PO SCH (09:00)
[2022-12-09] MEDS: FLUCONAZOLE 400 MG/NS 200 ML 200 ML IV SCH (13:09)
[2022-12-10] VITALS: BP 107/55
[2022-12-10] MEDS: METOCLOPRAMIDE 10 MG/2 ML VIAL IVP SCH ×3 (00:34→12:27)
[2022-12-10] MEDS: MEROPENEM 1 GM VIAL IVP SCH (01:46)
[2022-12-10 04:00] VITALS: BP 116/59
[2022-12-10 05:26] LABS: MEAN CORPUSCULAR HGB CONC 31.7 g/dL (32.0-36.0); MEAN CORPUSCULAR VOLUME 100.9 fL (79-99); RED BLOOD CELL COUNT(AUTO) 2.28 MIL/uL (4.00-5.50); RED CELL DISTRIBUTION WIDTH 17.9 % (11.0-15.5); WHITE BLOOD COUNT (AUTO) 6.9 K/uL (4.8-10.8)
[2022-12-10 05:37] LABS: CREATININE 0.8 mg/dL (0.5-1.5); MAGNESIUM 2.1 mg/dL (1.80-2.40); POTASSIUM 3.8 mmol/L (3.5-5.1)
[2022-12-10] MEDS: POTASSIUM CHLORIDE 10MEQ/100ML 10 MEQ/100 ML ML IV SCH (05:53)
[2022-12-10] MEDS: LEVOTHYROXINE 25 MCG TABLET PO SCH (05:54)
[2022-12-10] MEDS: INSULIN HUMULIN R 100 UNIT/ML 3ML SQ SCH ×4 (06:31→20:22)
[2022-12-10 08:00] VITALS: BP 130/60
[2022-12-10] MEDS: MIRABEGRON 50 MG PO SCH (09:00)
[2022-12-10] MEDS: ***HM*** (Umeclidinium Brm/Vilanterol Tr (Anoro Ellipta 62.5-25 Mcg IH SCH (09:00)
[2022-12-10] MEDS ORDERED: PHARMACY COMMUNICATION MISC SCH (11:30)
[2022-12-10 12:00] VITALS: BP 156/67
[2022-12-10] MEDS: FUROSEMIDE 20 MG TABLET PO SCH (12:26)
[2022-12-10] MEDS: POLYETHYLENE GLYCOL 3350 17 GM POWD.PACK PO SCH (12:26)
[2022-12-10] MEDS: METOPROLOL TARTRATE 50 MG TAB PO SCH ×2 (12:26→17:00)
[2022-12-10] MEDS: CITALOPRAM 20 MG TABLET PO SCH (12:26)
[2022-12-10] MEDS: FAMOTIDINE 20MG TAB PO SCH ×2 (12:26→20:22)
[2022-12-10] MEDS: BALSAM PERU/CASTOR OIL 60 GM TUBE TP SCH ×2 (12:27→20:22)
[2022-12-10 14:10] LABS: HEMATOCRIT 21.4 % (36-48)
[2022-12-10 14:20] LABS: INR 0.95 (0.85-1.15); PROTHROMBIN TIME 10.4 SEC (9.6-11.6)
[2022-12-10 16:00] VITALS: BP 123/57
[2022-12-10] MEDS: FLUCONAZOLE 400 MG/NS 200 ML 200 ML IV SCH (16:06)
[2022-12-10 20:00] VITALS: BP 125/61
[2022-12-10 20:27] LABS: HEMATOCRIT 22.6 % (36-48)
[2022-12-10] MEDS ORDERED: SODIUM CHLORIDE IRRIG SOLUTION 1,000 ML IRRIG.SOLN IR SCH (21:30)
[2022-12-11] MEDS: METOCLOPRAMIDE 10 MG/2 ML VIAL IVP SCH ×6 (00:21→23:43)
[2022-12-11 01:39] VITALS: BP 122/65
[2022-12-11 02:15] LABS: HEMATOCRIT 22.6 % (36-48); MEAN CORPUSCULAR HEMOGLOBIN 31.7 pg (27.0-33.0); MEAN CORPUSCULAR HGB CONC 31.9 g/dL (32.0-36.0); MEAN CORPUSCULAR VOLUME 99.6 fL (79-99); PLATELET COUNT (AUTO) 103 K/uL (130-400); RED BLOOD CELL COUNT(AUTO) 2.27 MIL/uL (4.00-5.50); RED CELL DISTRIBUTION WIDTH 18.1 % (11.0-15.5); WHITE BLOOD COUNT (AUTO) 6.2 K/uL (4.8-10.8)
[2022-12-11 02:25] LABS: CREATININE 0.7 mg/dL (0.5-1.5); POTASSIUM 4.1 mmol/L (3.5-5.1)
[2022-12-11 04:00] VITALS: BP 110/48
[2022-12-11] MEDS: LEVOTHYROXINE 25 MCG TABLET PO SCH (05:48)
[2022-12-11] MEDS: POTASSIUM CHLORIDE 10MEQ/100ML 10 MEQ/100 ML ML IV SCH (05:48)
[2022-12-11] MEDS: INSULIN HUMULIN R 100 UNIT/ML 3ML SQ SCH ×3 (06:43→15:38)
[2022-12-11 08:00] VITALS: BP 103/50
[2022-12-11] MEDS: MIRABEGRON 50 MG PO SCH (08:43)
[2022-12-11] MEDS: ***HM*** (Umeclidinium Brm/Vilanterol Tr (Anoro Ellipta 62.5-25 Mcg IH SCH (08:43)
[2022-12-11] MEDS: FUROSEMIDE 20 MG TABLET PO SCH (10:12)
[2022-12-11] MEDS: CITALOPRAM 20 MG TABLET PO SCH (10:12)
[2022-12-11] MEDS: METOPROLOL TARTRATE 50 MG TAB PO SCH ×2 (10:12→17:29)
[2022-12-11] MEDS: POLYETHYLENE GLYCOL 3350 17 GM POWD.PACK PO SCH (10:12)
[2022-12-11] MEDS: FAMOTIDINE 20MG TAB PO SCH ×2 (10:12→20:27)
[2022-12-11] MEDS: BALSAM PERU/CASTOR OIL 60 GM TUBE TP SCH ×2 (10:13→20:28)
[2022-12-11 11:50] VITALS: BP 104/47
[2022-12-11 13:35] LABS: HEMATOCRIT 22.5 % (36-48)
[2022-12-11] MEDS: FLUCONAZOLE 400 MG/NS 200 ML 200 ML IV SCH (14:36)
[2022-12-11 16:00] VITALS: BP 108/39
[2022-12-11 20:00] VITALS: BP 95/40
[2022-12-12] VITALS: BP 93/45
[2022-12-12 04:00] VITALS: BP 101/40
[2022-12-12] MEDS: METOCLOPRAMIDE 10 MG/2 ML VIAL IVP SCH ×3 (05:28→17:03)
[2022-12-12] MEDS: LEVOTHYROXINE 25 MCG TABLET PO SCH (05:28)
[2022-12-12] MEDS: MEROPENEM 1 GM VIAL IVP SCH ×3 (05:34→21:43)
[2022-12-12 05:50] LABS: RETICULOCYTE % (AUTO) 2.87 % (0.42-2.23)
[2022-12-12 05:53] LABS: HEMATOCRIT 22.5 % (36-48); MEAN CORPUSCULAR HEMOGLOBIN 32.8 pg (27.0-33.0); MEAN CORPUSCULAR HGB CONC 33.3 g/dL (32.0-36.0); MEAN CORPUSCULAR VOLUME 98.3 fL (79-99); NUCLEATED RED BLOOD CELLS 0.3 % (0.0-0.19); RED BLOOD CELL COUNT(AUTO) 2.29 MIL/uL (4.00-5.50); RED CELL DISTRIBUTION WIDTH 17.9 % (11.0-15.5); WHITE BLOOD COUNT (AUTO) 6.8 K/uL (4.8-10.8)
[2022-12-12] MEDS: INSULIN HUMULIN R 100 UNIT/ML 3ML SQ SCH ×4 (05:57→16:34)
[2022-12-12 06:29] LABS: CREATININE 0.6 mg/dL (0.5-1.5); POTASSIUM 4.3 mmol/L (3.5-5.1)
[2022-12-12 06:53] LABS: % IRON SATURATION 27.3 % (22-44)
[2022-12-12 08:00] VITALS: BP 90/42
[2022-12-12] MEDS: MIRABEGRON 50 MG PO SCH (08:05)
[2022-12-12] MEDS: ***HM*** (Umeclidinium Brm/Vilanterol Tr (Anoro Ellipta 62.5-25 Mcg IH SCH (08:05)
[2022-12-12] MEDS: POLYETHYLENE GLYCOL 3350 17 GM POWD.PACK PO SCH (08:29)
[2022-12-12] MEDS: FAMOTIDINE 20MG TAB PO SCH ×2 (08:30→21:43)
[2022-12-12] MEDS: METOPROLOL TARTRATE 50 MG TAB PO SCH ×2 (08:30→17:03)
[2022-12-12] MEDS: FUROSEMIDE 20 MG TABLET PO SCH (08:30)
[2022-12-12] MEDS: BALSAM PERU/CASTOR OIL 60 GM TUBE TP SCH ×2 (08:31→22:32)
[2022-12-12] MEDS: CITALOPRAM 20 MG TABLET PO SCH (08:35)
[2022-12-12 12:00] VITALS: BP 125/62
[2022-12-12] MEDS: FLUCONAZOLE 400 MG/NS 200 ML 200 ML IV SCH (13:45)
[2022-12-12 16:00] VITALS: BP 135/58
[2022-12-12 20:00] VITALS: BP 125/71
[2022-12-12] MEDS ORDERED: IRON SUCROSE COMPLEX 300 MG in 0.9% NACL 250ML 250 ML IV SCH (21:00)
[2022-12-12] MEDS ORDERED: IRON SUCROSE COMPLEX 100 MG/5 ML VIAL ONE (21:52)
[2022-12-13] VITALS: BP 122/52
[2022-12-13] MEDS: METOCLOPRAMIDE 10 MG/2 ML VIAL IVP SCH ×3 (01:19→13:49)
[2022-12-13 04:00] VITALS: BP 123/57
[2022-12-13] MEDS: MEROPENEM 1 GM VIAL IVP SCH ×3 (05:28→20:35)
[2022-12-13] MEDS: LEVOTHYROXINE 25 MCG TABLET PO SCH (05:30)
[2022-12-13] MEDS: INSULIN HUMULIN R 100 UNIT/ML 3ML SQ SCH ×4 (06:00→18:00)
[2022-12-13 07:03] LABS: BASOPHILS % (AUTO) 0.1 % (0.0-5.0); EOSINOPHILS % (AUTO) 1.3 % (0.0-8.0); LYMPHOCYTES % (AUTO) 11.9 % (21.0-51.0); MEAN CORPUSCULAR HEMOGLOBIN 31.5 pg (27.0-33.0); MEAN CORPUSCULAR HGB CONC 32.4 g/dL (32.0-36.0); MEAN CORPUSCULAR VOLUME 97.2 fL (79-99); NEUTROPHILS % (AUTO) 79.9 % (40.0-77.0); PLATELET COUNT (AUTO) 139 K/uL (130-400); RED BLOOD CELL COUNT(AUTO) 2.16 MIL/uL (4.00-5.50); RED CELL DISTRIBUTION WIDTH 17.2 % (11.0-15.5); WHITE BLOOD COUNT (AUTO) 9.3 K/uL (4.8-10.8)
[2022-12-13 07:26] LABS: ALBUMIN 1.4 g/dL (3.5-5.0); CREATININE 0.6 mg/dL (0.5-1.5); POTASSIUM 3.7 mmol/L (3.5-5.1); TOTAL PROTEIN, SERUM 4.8 g/dL (6.0-8.3)
[2022-12-13] MEDS: POLYETHYLENE GLYCOL 3350 17 GM POWD.PACK PO SCH (08:52)
[2022-12-13] MEDS: FAMOTIDINE 20MG TAB PO SCH ×2 (08:53→20:35)
[2022-12-13] MEDS: FUROSEMIDE 20 MG TABLET PO SCH (08:53)
[2022-12-13] MEDS: CITALOPRAM 20 MG TABLET PO SCH (08:53)
[2022-12-13] MEDS: ***HM*** (Umeclidinium Brm/Vilanterol Tr (Anoro Ellipta 62.5-25 Mcg IH SCH (09:00)
[2022-12-13] MEDS: MIRABEGRON 50 MG PO SCH (09:00)
[2022-12-13] MEDS: METOPROLOL TARTRATE 50 MG TAB PO SCH ×2 (09:56→18:08)
[2022-12-13 12:00] VITALS: BP 135/68
[2022-12-13 16:00] VITALS: BP 135/51
[2022-12-13] MEDS: FLUCONAZOLE 400 MG/NS 200 ML 200 ML IV SCH (18:09)
[2022-12-13] MEDS: BALSAM PERU/CASTOR OIL 60 GM TUBE TP SCH ×2 (18:09→20:34)
[2022-12-13 20:00] VITALS: BP 121/56
[2022-12-14] VITALS: BP 128/56
[2022-12-14 04:00] VITALS: BP 122/58
[2022-12-14] MEDS: LEVOTHYROXINE 25 MCG TABLET PO SCH (04:29)
[2022-12-14] MEDS: MEROPENEM 1 GM VIAL IVP SCH ×3 (04:29→20:41)
[2022-12-14] MEDS: INSULIN HUMULIN R 100 UNIT/ML 3ML SQ SCH ×4 (06:00→18:00)
[2022-12-14 06:21] LABS: HEMATOCRIT 25.6 % (36-48); MEAN CORPUSCULAR HGB CONC 33.2 g/dL (32.0-36.0); MEAN CORPUSCULAR VOLUME 93.4 fL (79-99); RED BLOOD CELL COUNT(AUTO) 2.74 MIL/uL (4.00-5.50); RED CELL DISTRIBUTION WIDTH 19.6 % (11.0-15.5); WHITE BLOOD COUNT (AUTO) 9.6 K/uL (4.8-10.8)
[2022-12-14 06:37] LABS: CREATININE 0.8 mg/dL (0.5-1.5); MAGNESIUM 1.8 mg/dL (1.80-2.40); POTASSIUM 3.6 mmol/L (3.5-5.1)
[2022-12-14 08:09] VITALS: BP 131/53
[2022-12-14] MEDS: ***HM*** (Umeclidinium Brm/Vilanterol Tr (Anoro Ellipta 62.5-25 Mcg IH SCH (09:00)
[2022-12-14] MEDS: MIRABEGRON 50 MG PO SCH (09:00)
[2022-12-14 11:02] VITALS: BP 107/57
[2022-12-14] MEDS: METOPROLOL TARTRATE 50 MG TAB PO SCH ×2 (11:20→17:55)
[2022-12-14] MEDS: CITALOPRAM 20 MG TABLET PO SCH (11:20)
[2022-12-14] MEDS: FUROSEMIDE 20 MG TABLET PO SCH (11:20)
[2022-12-14] MEDS: FAMOTIDINE 20MG TAB PO SCH ×2 (11:20→20:42)
[2022-12-14] MEDS: POLYETHYLENE GLYCOL 3350 17 GM POWD.PACK PO SCH (11:20)
[2022-12-14] MEDS: BALSAM PERU/CASTOR OIL 60 GM TUBE TP SCH ×2 (11:21→20:43)
[2022-12-14] MEDS: FLUCONAZOLE 400 MG/NS 200 ML 200 ML IV SCH (14:38)
[2022-12-14] MEDS: MAGNESIUM 2GM PREMIX 50ML 50 ML IV SCH (14:39)
[2022-12-14] MEDS: POTASSIUM CHLORIDE 20MEQ/100ML 100 ML IV PRN (14:47)
[2022-12-14 16:04] VITALS: BP 148/58
[2022-12-14] MEDS ORDERED: AMINOCAPROIC ACID 15,000 MG in 0.9% NACL 500ML IV SCH (16:30)
[2022-12-14] MEDS: POTASSIUM CHLORIDE 10% ELIXIR 20 MEQ/15 ML UDCUP PO PRN ×2 (18:02→20:42)
[2022-12-14 20:00] VITALS: BP 148/72
[2022-12-15] VITALS: BP 111/62
[2022-12-15 04:00] VITALS: BP 108/55
[2022-12-15] MEDS: MEROPENEM 1 GM VIAL IVP SCH ×3 (04:53→20:58)
[2022-12-15] MEDS: INSULIN HUMULIN R 100 UNIT/ML 3ML SQ SCH ×4 (04:53→18:00)
[2022-12-15] MEDS: LEVOTHYROXINE 25 MCG TABLET PO SCH (04:54)
[2022-12-15 06:19] LABS: HEMATOCRIT 26.4 % (36-48); MEAN CORPUSCULAR HEMOGLOBIN 31.2 pg (27.0-33.0); MEAN CORPUSCULAR HGB CONC 31.8 g/dL (32.0-36.0); MEAN CORPUSCULAR VOLUME 98.1 fL (79-99); RED BLOOD CELL COUNT(AUTO) 2.69 MIL/uL (4.00-5.50); RED CELL DISTRIBUTION WIDTH 19.5 % (11.0-15.5)
[2022-12-15 06:35] LABS: CREATININE 0.8 mg/dL (0.5-1.5); POTASSIUM 3.8 mmol/L (3.5-5.1)
[2022-12-15 06:47] LABS: MAGNESIUM 2.5 mg/dL (1.80-2.40)
[2022-12-15 08:56] VITALS: BP 136/46
[2022-12-15] MEDS: BALSAM PERU/CASTOR OIL 60 GM TUBE TP SCH ×2 (09:00→20:59)
[2022-12-15] MEDS: MIRABEGRON 50 MG PO SCH (09:00)
[2022-12-15] MEDS: ***HM*** (Umeclidinium Brm/Vilanterol Tr (Anoro Ellipta 62.5-25 Mcg IH SCH (09:00)
[2022-12-15] MEDS: POLYETHYLENE GLYCOL 3350 17 GM POWD.PACK PO SCH (10:26)
[2022-12-15] MEDS: CITALOPRAM 20 MG TABLET PO SCH (10:26)
[2022-12-15] MEDS: FAMOTIDINE 20MG TAB PO SCH ×2 (10:26→20:59)
[2022-12-15] MEDS: FUROSEMIDE 20 MG TABLET PO SCH (10:26)
[2022-12-15] MEDS: METOPROLOL TARTRATE 50 MG TAB PO SCH ×2 (10:26→17:46)
[2022-12-15 11:45] VITALS: BP 114/50
[2022-12-15] MEDS: FLUCONAZOLE 400 MG/NS 200 ML 200 ML IV SCH (14:49)
[2022-12-15 16:25] VITALS: BP 125/51
[2022-12-15 19:00] VITALS: BP 120/33
[2022-12-16] VITALS: BP 113/47
[2022-12-16 04:00] VITALS: BP 130/54
[2022-12-16] MEDS: MEROPENEM 1 GM VIAL IVP SCH ×2 (05:11→16:09)
[2022-12-16] MEDS: LEVOTHYROXINE 25 MCG TABLET PO SCH (05:11)
[2022-12-16] MEDS: INSULIN HUMULIN R 100 UNIT/ML 3ML SQ SCH ×3 (05:22→12:00)
[2022-12-16 07:48] VITALS: BP 131/40
[2022-12-16] MEDS: MIRABEGRON 50 MG PO SCH (09:00)
[2022-12-16] MEDS: ***HM*** (Umeclidinium Brm/Vilanterol Tr (Anoro Ellipta 62.5-25 Mcg IH SCH (09:00)
[2022-12-16] MEDS: FAMOTIDINE 20MG TAB PO SCH (09:27)
[2022-12-16] MEDS: METOPROLOL TARTRATE 50 MG TAB PO SCH (09:27)
[2022-12-16] MEDS: POLYETHYLENE GLYCOL 3350 17 GM POWD.PACK PO SCH (09:27)
[2022-12-16] MEDS: FUROSEMIDE 20 MG TABLET PO SCH (09:27)
[2022-12-16 11:26] VITALS: BP 131/70
[2022-12-16] MEDS: BALSAM PERU/CASTOR OIL 60 GM TUBE TP SCH (12:33)
[2022-12-16 16:03] VITALS: BP 129/48
[2022-12-16] MEDS: FLUCONAZOLE 400 MG/NS 200 ML 200 ML IV SCH (16:09)
== END 2022-12-16 17:25 | disposition hospice, home (50) | DRG 330 ==
LOC: EDH 11:50 → OBSVTOIN 15:52 → EDHIP 15:52 → 3CH 18:35
PROVIDERS: ADMIT Internal Medicine; ATTEND Internal Medicine
PROC: 0DQL0ZZ Repair Transverse Colon, Open Approach (ICD-10-PCS; 2022-12-04)
PROC: 0DP6XUZ Removal of Feeding Device from Stomach, External Approach (ICD-10-PCS; 2022-12-04)
PROC: 0DH63UZ Insertion of Feeding Device into Stomach, Percutaneous Approach (ICD-10-PCS; 2022-12-04)
PROC: 30233N1 Transfusion of Nonautologous Red Blood Cells into Peripheral Vein, Percutaneous Approach (ICD-10-PCS; principal; 2022-12-04 16:28)
DX: K94.23 Gastrostomy malfunction (principal); D62 Acute posthemorrhagic anemia; E44.0 Moderate protein-calorie malnutrition; E87.0 Hyperosmolality and hypernatremia; F03.92 Unspecified dementia, unspecified severity, with psychotic disturbance; I13.0 Hypertensive heart and chronic kidney disease with heart failure and stage 1 through stage 4 chronic kidney disease, or unspecified chronic kidney disease; I50.32 Chronic diastolic (congestive) heart failure; Z16.12 Extended spectrum beta lactamase (ESBL) resistance; S36.531A Laceration of transverse colon, initial encounter; Z68.1 Body mass index [BMI] 19.9 or less, adult; R64 Cachexia; N30.01 Acute cystitis with hematuria; Z20.822 Contact with and (suspected) exposure to COVID-19; E11.65 Type 2 diabetes mellitus with hyperglycemia; K80.20 Calculus of gallbladder without cholecystitis without obstruction; R13.12 Dysphagia, oropharyngeal phase; E86.9 Volume depletion, unspecified; E11.649 Type 2 diabetes mellitus with hypoglycemia without coma; L89.152 Pressure ulcer of sacral region, stage 2; N18.9 Chronic kidney disease, unspecified; R62.7 Adult failure to thrive; D50.9 Iron deficiency anemia, unspecified; R33.9 Retention of urine, unspecified; X58.XXXA Exposure to other specified factors, initial encounter; E11.22 Type 2 diabetes mellitus with diabetic chronic kidney disease; E11.51 Type 2 diabetes mellitus with diabetic peripheral angiopathy without gangrene; E03.9 Hypothyroidism, unspecified; F32.A Depression, unspecified; F41.9 Anxiety disorder, unspecified; M19.90 Unspecified osteoarthritis, unspecified site; E78.00 Pure hypercholesterolemia, unspecified; Z89.511 Acquired absence of right leg below knee; Z89.611 Acquired absence of right leg above knee; Z89.519 Acquired absence of unspecified leg below knee; Z89.612 Acquired absence of left leg above knee; Z89.512 Acquired absence of left leg below knee; Y93.89 Activity, other specified; Y92.89 Other specified places as the place of occurrence of the external cause; Y99.8 Other external cause status
CPT/HCPCS: 36415; 36430; 71045; 74018; 74176; 80048; 80053; 81001; 82607; 82728; 82947; 82948; 83605; 83735; 84100; 84145; 85014; 85018; 85025; 85027; 85610; 85730; 86850; 86900; 86901; 86923; 87040; 87077; 87088; 87186; 87635; 92610; 93306; 93356; 97039; C1894; G0378; J1100; J1450; J1650; J1756; J1956; J2001; J2175; J2185; J2405; J2704; J2765; J3010; J3475; J3480; J3490; J7040; J7050; J7070; J7120; P9016; P9045; Q9963

== ENCOUNTER 2023-02-15 16:27 | Emergency (ER) | payer OTHER ==
[2023-02-15 18:35] LABS: BASOPHILS % (AUTO) 0.4 % (0.0-5.0); EOSINOPHILS % (AUTO) 0.4 % (0.0-8.0); HEMATOCRIT 33.8 % (36-48); LYMPHOCYTES % (AUTO) 36.5 % (21.0-51.0); MEAN CORPUSCULAR HEMOGLOBIN 34.1 pg (27.0-33.0); MEAN CORPUSCULAR HGB CONC 32.2 g/dL (32.0-36.0); MEAN CORPUSCULAR VOLUME 105.6 fL (79-99); NEUTROPHILS % (AUTO) 57.3 % (40.0-77.0); PLATELET COUNT (AUTO) 260 K/uL (130-400); RED CELL DISTRIBUTION WIDTH 17.2 % (11.0-15.5); WHITE BLOOD COUNT (AUTO) 9.1 K/uL (4.8-10.8)
[2023-02-15 18:43] LABS: CREATININE 1.4 mg/dL (0.5-1.5); POTASSIUM 4.7 mmol/L (3.5-5.1)
[2023-02-15 18:48] LABS: ALBUMIN 2.5 g/dL (3.5-5.0); TOTAL PROTEIN, SERUM 6.9 g/dL (6.0-8.3)
[2023-02-15] MEDS ORDERED: DIATR MEGLU/DIATRIZOATE SODIUM 30 ML BOTTLE ONE (18:52)
[2023-02-15] MEDS ORDERED: DEXTROSE 50%-WATER 50 ML DISP.SYRIN IV ONE (19:00)
[2023-02-15] MEDS ORDERED: CLIN-141 PO (19:56)
[2023-02-15] MEDS ORDERED: GLUCAGON 1MG KIT 1 MG ML ONE (19:59)
[2023-02-15] MEDS ORDERED: GLUCAGON 1MG KIT 1 MG ML IM STA (20:00)
[2023-02-15 20:23] VITALS: BP 95/45
== END 2023-02-15 20:25 | disposition home or self-care (01) ==
LOC: EDH 16:27
DX: T85.79XA Infection and inflammatory reaction due to other internal prosthetic devices, implants and grafts, initial encounter (principal); Y73.8 Miscellaneous gastroenterology and urology devices associated with adverse incidents, not elsewhere classified; Y92.89 Other specified places as the place of occurrence of the external cause
CPT/HCPCS: 99284; 80053; 85025; 36415; 74018 ×2; 96372; J1610; Q9963

== ENCOUNTER → 2023-03-26 | Outpatient (CLI) | payer OTHER ==
[~2023-03-26] MED LIST changes: +CLIN-141 PO; +DIATR MEGLU/DIATRIZOATE SODIUM 30 ML BOTTLE ONE
== END | disposition home or self-care (01) ==
LOC: RAH 08:56
PROVIDERS: ATTEND Internal Medicine Gastroenterology
DX: Z43.1 Encounter for attention to gastrostomy (principal)
CPT/HCPCS: 74150; Q9963